=== PATIENT | male | born 1975 | race Caucasian/White ===

== ENCOUNTER 2017-04-27 06:55 | Day surgery (SDC) | payer MEDICARE, OTHER ==
[~2017-04-27] VITALS: Ht 198.1 cm; Wt 106.6 kg
[~2017-04-27 06:55] MED LIST: GEMFIBROZIL600 MG PO; PRAVASTATIN SOD40 MG PO; WARFARIN SODIUM10 MG PO; ZYPREXA20 MG PO
--- NOTE | 2017-04-27 07:48 | NUR ---
PT RESTING IN BED-ALERT, ORIENTED AND SUPPORTED BY HIS MOTHER CINTHIA. HE SEEMED TO BE COMFORTABLE, HAD FEW QUESTIONS. PT DECLINED PRAYER AT THIS TIME, EXTENDED A BLESSING.
--- NOTE | 2017-04-27 08:40 | NUR ---
LE 0730 PT C/O ITCHING ON BILAT ARMS AND CHEST FROM WIPES. WARM WASHCLOTH GIVEN TO WIPE SKIN. PT CAME IN WITH RASH ON ARMS AND CHEST FROM SOAP USED AT HOME. 0750 NEW ORDERS RECEIVED. 0759 BENADRYL 25MG GIVEN IV. 0830 PT CONTINUES TO C/O ITCHING. PT'S MOTHER STATES "PT TAKES BENADRYL 50MG PO Q6 HRS.". TC TO ANESTHESIA WITH NEW ORDERS RECEIVED. 0839 BENADRYL 25MG IV GIVEN AND VERSED 1MG IV. FAMILY AT BEDSIDE.
[2017-04-27] MEDS ORDERED: BENADRYL25 MG PO (08:45)
--- NOTE | 2017-04-27 11:38 | NUR ---
04/27/[address] AT BEDSIDE REVIEWING PROCEDURE WITH PT. PT DENIES PAIN OR NAUSEA. ORIENTED TO TIME AND SITUATION.
--- NOTE | 2017-06-16 14:36 | OR ---
[facility] [address], [place] [address] Signed DATE OF OPERATION: 04/27/2017 SURGEON: Evonne Moreno DPM PREOPERATIVE DIAGNOSIS: Fifth metatarsal base fracture or Jolly fracture, left foot. POSTOPERATIVE DIAGNOSIS: Fifth metatarsal base fracture or Jolly fracture, left foot. PROCEDURE: Percutaneous fixation of fifth metatarsal base fracture. [employer] CONTRACTOR: Aman Bach DPM ANESTHESIA: Provided by nurse mounter sousaphonesAubree. Anesthesia was a local with MAC consisting of 19 mL of 0.5% ropivacaine and 2% lidocaine plain mixed in a 1:1 mix injected about the left ankle and fifth metatarsal base region. HEMOSTASIS: None was utilized. ESTIMATED BLOOD LOSS: Less than 5 mL or minimal. MATERIAL USED: One 5.5 mm x 60 mm stainless steel screw and 4-0 nylon. PROCEDURE IN DETAIL: The patient was brought into the operating room and placed upon the operating table in the supine position. Following IV sedation, the above local anesthesia was administered about the patient's left ankle and fifth metatarsal base. The left foot was then scrubbed, prepped, and draped in the usual sterile technique. Attention was then directed to the lateral aspect of the left foot where a Steinmann pin to act as a cannula was inserted into the soft tissue at the level of the cuboid and advanced distally until it interacted with the base of the fifth metatarsal. The pin was then driven through the Electronically Signed By: EVONNE MORENO DPM 06/16/17 1436 PATIENT NAME: NIKLOAY CHAPMAN OPERATIVE REPORT DATE OF : 79 PHYSICIAN: EVONNE MORENO DPM REPORT #: [id number] REPORT IS CONFIDENTIAL AND NOT TO BE RELEASED WITHOUT AUTHORIZATION [facility] [address] [place], [place] [address] Signed base of the fifth metatarsal into the medullary canal of the metatarsal. Positioning was verified by intraoperative fluoroscopy. With the Steinmann pin being found in the proper positioning, a 4.5 mm drill was then utilized to drill into the medullary canal. This was then removed. Tap and measure were then utilized to both the tap the drill hole as well as measure the depth of screw needed. Next, a 5.5 mm screw was inserted. This was not cannulated. So the Steinmann pin was removed prior to placement of the screw fixation. The screw was placed within the soft tissue and advanced across the fracture site into the medullary canal of the fifth metatarsal. Positioning was then verified again utilizing intraoperative fluoroscopy and tightness of the screw advanced to at least 2-finger tightness if not just a little more. Good bite was found with the threads of the screw and compression was also somewhat palpated and felt and observed under fluoroscopy. The area was then flushed with sterile normal saline and two simple sutures were placed to reapproximate the integument utilizing 4-0 Vicryl. Xeroform was then applied followed by fluff gauze and Coban. The patient was then escorted to the recovery area with vital signs stable. Capillary refill time was less than 3 seconds to all digits of the left foot. The patient tolerated both the procedure and the anesthesia well and following the period of postoperative monitoring, the patient was discharged to home with both written and oral instructions. EUGENIA De Souza/MODL /[id number] Electronically Signed By: EVONNE MORENO DPM 06/16/17 1436 PATIENT NAME: ARINIKOLAY OPERATIVE REPORT DATE OF : 79 PHYSICIAN: EVONNE MORENO DPM REPORT #: [id number] REPORT IS CONFIDENTIAL AND NOT TO BE RELEASED WITHOUT AUTHORIZATION
== END 2017-04-27 12:10 | disposition home or self-care (01) ==
LOC: OPS 06:55 → DS 06:55
PROVIDERS: Podiatrist Foot & Ankle Surgery
PROC: 0QH Lower Bones, Insertion (ICD-10-PCS; principal; 2017-04-27 09:30)
DX: S92.355A Nondisplaced fracture of fifth metatarsal bone, left foot, initial encounter for closed fracture (principal); F31.9 Bipolar disorder, unspecified; F20.9 Schizophrenia, unspecified; E11.9 Type 2 diabetes mellitus without complications; F17.210 Nicotine dependence, cigarettes, uncomplicated; I87.2 Venous insufficiency (chronic) (peripheral); Z79.899 Other long term (current) drug therapy; W18.30XA Fall on same level, unspecified, initial encounter
CPT/HCPCS: 01480; 73620; 73630; C1713; J0690; J1100; J1200; J1885; J2250; J2405; J2704; J2795; J7120

== ENCOUNTER 2024-01-10 10:18 | Emergency (ER) | payer MEDICARE, OTHER ==
[~2024-01-10] VITALS: Ht 198.1 cm; Wt 82.0 kg
[~2024-01-10 10:18] MED LIST changes: +BENADRYL25 MG PO
[2024-01-10] MEDS ORDERED: diphenhydrAMINE HCL 50 MG/ML VIAL IM ONE (10:30)
[2024-01-10] MEDS ORDERED: LORazepam 2 MG/ML VIAL IM ONE (10:30)
[2024-01-10] MEDS ORDERED: HALOPERIDOL LACTATE 5 MG/ML VIAL IM ONE (10:30)
[2024-01-10 10:44] LABS: BASOPHILS 0.6 % (0-2); BILIRUBIN, URINE NEGATIVE (negative); BLOOD/HGB, URINE NEGATIVE (Negative); EOSINOPHILS 1.4 % (0-6); HEMATOCRIT 38.4 % (35.0-50.0); HEMOGLOBIN 12.7 g/dL (12.0-18.0); KETONE, URINE NEGATIVE (Negative); LEUK ESTERASE, URINE NEGATIVE (negative); LYMPHOCYTES 17.6 % (24-44); MCH 28.6 (27-36); MCV 86.4 fl (81-99); NEUTROPHILS 71.4 % (39-80); NITRITE, URINE NEGATIVE (negative); PH, URINE 6.5 (5-7); PLATELET COUNT 238 K/uL (140-440); RBC 4.44 M/ul (4.3-5.7); RDW 16.1 (10.5-15.0)
[2024-01-10 11:07] LABS: AMPHETAMINES, URINE NEGATIVE (NEGATIVE); BARBITURATES, URINE NEGATIVE (NEGATIVE); BENZODIAZEPINE, URINE NEGATIVE (NEGATIVE); BUPRENORPHINE, URINE NEGATIVE (NEGATIVE); CANNABINOID, URINE POSITIVE (NEGATIVE); COCAINE, URINE NEGATIVE (NEGATIVE); ECSTASY, URINE NEGATIVE (NEGATIVE); FENTANYL, URINE NEGATIVE (NEGATIVE); METHADONE, URINE NEGATIVE (NEGATIVE); OPIATES, URINE NEGATIVE (NEGATIVE); OXYCODONE, URINE NEGATIVE (NEGATIVE); PHENCYCLIDINE, URINE NEGATIVE (NEGATIVE)
[2024-01-10 11:08] LABS: ACETAMINOPHEN 0 ug/mL (10-30); ALBUMIN 3.8 g/dL (3.4-5.0); ALCOHOL, MEDICAL <3 ng/dL (<3); ALKALINE PHOSPHATASE 102 U/L (46-116); ALT (SGPT) 17 U/L (14-59); ANION GAP 11.2 (7-21); AST (SGOT) 17 U/L (15-37); BILIRUBIN, TOTAL 0.2 ng/dL (0.2-1.0); CARBON DIOXIDE 30 mmol/L (21-32); CHLORIDE 103 mmol/L (98-107); CREATININE, SERUM 0.99 mg/dL (0.70-1.30); GLOMERULAR FILTRATION RATE,EST 95 mL/min (>60); POTASSIUM 4.2 mmol/L (3.5-5.1); SALICYLATE 3.3 mg/dL (2.8-20.0); TSH, 3RD GENERATION 2.745 uIU/mL (0.358-3.740); UREA NITROGEN 10 mg/dL (7-18)
[2024-01-10] MEDS ORDERED: OLANZapine 10 MG TABDIS PO ONE (11:30)
[2024-01-10] MEDS ORDERED: OLANZapine 10 MG TABDIS PO SCH (21:00)
[2024-01-12] MEDS ORDERED: diphenhydrAMINE HCL 50 MG/ML VIAL IM ONE (14:30)
[2024-01-12] MEDS ORDERED: HALOPERIDOL LACTATE 5 MG/ML VIAL IM ONE (14:30)
[2024-01-12] MEDS ORDERED: LORazepam 2 MG/ML VIAL IM ONE (14:30)
[2024-01-12 15:56] LABS: INR 0.97 (0.80-1.30); PROTIME 12.2 Sec (11.2-14.2)
[2024-01-12 16:21] LABS: INFLUENZA B NAA NEGATIVE (NEGATIVE); RESPIRATORY SYNCYTIAL VIR NAA NEGATIVE (NEGATIVE)
[2024-01-13] MEDS ORDERED: diphenhydrAMINE HCL 50 MG/ML VIAL ONE (11:12)
[2024-01-13] MEDS ORDERED: HALOPERIDOL LACTATE 5 MG/ML VIAL ONE (11:14)
[2024-01-13] MEDS ORDERED: LORazepam 2 MG/ML VIAL ONE (11:14)
[2024-01-13] MEDS ORDERED: HALOPERIDOL LACTATE 5 MG/ML VIAL IM ONE ×2 (22:30)
[2024-01-13] MEDS ORDERED: LORazepam 2 MG/ML VIAL IM ONE ×2 (22:30)
[2024-01-13] MEDS ORDERED: diphenhydrAMINE HCL 50 MG/ML VIAL IM ONE ×2 (22:30)
[2024-01-14] MEDS ORDERED: NICOTINE POLACRILEX 4 MG LOZENGE BUCCAL PRN (14:00)
[2024-01-15] MEDS ORDERED: MELATONIN 3 MG TAB PO ONE ×2 (20:00)
--- NOTE | 2024-01-16 09:20 | EKG ---
[facility] [address] [place] [address] Signed Sinus bradycardia Abnormal QRS-T angle, consider primary T wave abnormality Abnormal ECG When compared with ECG of 21-APR-2017 10:33, T wave inversion now evident in Inferior leads Confirmed by Gay Couch ([id number]) on 01/13/2024 1:10:21 PM Electronically Signed By: GAY COUCH MD 01/16/24 0920 PATIENT NAME: ARINIKOLAYJF POLANCO Electrocardiogram DATE OF : 79 PHYSICIAN: GAY COUCH MD REPORT #: [id number] REPORT IS CONFIDENTIAL AND NOT TO BE RELEASED WITHOUT AUTHORIZATION
[2024-01-17 08:05] VITALS: BP 142/89
== END 2024-01-17 08:08 | disposition other institution, planned readmission (95) ==
LOC: ED 10:18
PROVIDERS: Emergency Medicine
DX: Z04.6 Encounter for general psychiatric examination, requested by authority (principal); F17.200 Nicotine dependence, unspecified, uncomplicated; Z79.01 Long term (current) use of anticoagulants; Z79.899 Other long term (current) drug therapy
CPT/HCPCS: 36415; 80053; 80307; 81003; 83880; 84443; 85025; 85610; 87502; 96372; 99283-25; G0480; J1200; J1630; J2060; U0002

== ENCOUNTER → 2024-01-17 | Emergency (ER) | payer MEDICARE, OTHER ==
[~2024-01-17] VITALS: Ht 198.1 cm; Wt 82.0 kg
[~2024-01-17] MED LIST changes: +HALOPERIDOL LACTATE 5 MG/ML VIAL IM ONE; +HALOPERIDOL LACTATE 5 MG/ML VIAL ONE; +KETAMINE HCL 500 MG/5 ML MDV IM ONE; +KETAMINE HCL 500 MG/5 ML MDV ONE; +KETAMINE in NS 50 MG/5 ML SYR ONE; +LORazepam 2 MG/ML VIAL IM ONE; +LORazepam 2 MG/ML VIAL ONE; +NICOTINE 21 MG/24 HR 1 EA TDSY TD SCH; +NICOTINE POLACRILEX 4 MG LOZENGE BUCCAL PRN; +OLANZapine 10 MG TAB PO SCH; +diphenhydrAMINE HCL 50 MG/ML VIAL IM ONE; +diphenhydrAMINE HCL 50 MG/ML VIAL ONE
--- OUTSIDE RECORDS SUMMARY | 2024-01-17 10:32 | XMS ---
PreManage Notification: NIKOLAY CHAPMAN Security Recovery Collector Events No recent Security Events currently on file CRITERIA MET - [facility] - 2 Visits in 30 Days CARE PROVIDERS -, [facility] Dentist: Health Counselor [facility] PHONE: [phone] -[place]- Dentist: Health Counselor [facility] PHONE: [phone] OCTAVIANO NIX [facility] Current PHONE: Unknown Annel has no Care Guidelines for this patient. E.Robert VISIT COUNT (12 MO.) 2 TY Maldonado TOTAL 2 NOTE: Visits indicate total known visits. ED/UCC VISIT TRACKING (12 MO.) 01/17/2024 10:30 TY Arriaga OR TYPE: Emergency COMPLAINT: - MEDICAL CLEARANCE 01/10/2024 10:18 TY Arriaga OR TYPE: Emergency COMPLAINT: - MEDICAL CLEARANCE DIAGNOSES: - Encounter for general psychiatric examination, requested by authority - FPC (current) use of anticoagulants - Nicotine dependence, unspecified, uncomplicated - Other lobsterman (current) drug therapy INPATIENT VISIT TRACKING (12 MO.) No inpatient visits to display in this time frame [email or web address]
[2024-01-18 08:16] VITALS: BP 152/86
== END ==
LOC: ED 10:30
DX: F25.9 Schizoaffective disorder, unspecified (principal); F17.200 Nicotine dependence, unspecified, uncomplicated; Z79.01 Long term (current) use of anticoagulants; Z79.899 Other long term (current) drug therapy
CPT/HCPCS: A9270; J3490